=== PATIENT | female | born 1995 | race Caucasian/White ===

== ENCOUNTER 2025-07-11 19:22 | Emergency (ER) | payer OTHER ==
[~2025-07-11] VITALS: Ht 160 cm; Wt 50.0 kg
[2025-07-11 19:52] LABS: PLATELET COUNT (AUTO) 359 K/uL (150-450); RED BLOOD CELL COUNT(AUTO) 4.46 MIL/uL (4.00-5.20); RED CELL DISTRIBUTION WIDTH 12.8 % (11.5-14.5); WHITE BLOOD COUNT (AUTO) 6.9 K/uL (4.5-11.0)
[2025-07-11 20:02] LABS: CALCIUM, TOTAL 8.7 mg/dL (8.8-10.5); CREATININE 0.62 mg/dL (0.60-1.30); GLOMERULAR FILTR. RATE CALC > 60 mL/min (>60); GLUCOSE,RANDOM 89 mg/dL (70-110); SODIUM SERUM 141 mmol/L (136-145); UREA NITROGEN, BLOOD 9 mg/dL (7-18)
[2025-07-11 20:13] VITALS: BP 128/72; PULSE 82; RESP 18; TEMP 98.1; O2SAT 100
== END 2025-07-11 22:46 | disposition left against medical advice (07) ==
LOC: EMS 19:22
DX: F41.9 Anxiety disorder, unspecified (principal); Z53.21 Procedure and treatment not carried out due to patient leaving prior to being seen by health care provider
CPT/HCPCS: 99281; 80048; 85025; 36415; G0480